=== PATIENT | male | born 1965 | race Caucasian/White ===

== ENCOUNTER 2016-10-16 23:41 | Emergency (ER) | payer BC ==
--- NOTE | 2016-10-17 23:16 | ER ---
ADMIT: 10/16/2016 RM/LOC: ER [facility] MR#: [id number] [address] [id number] [facility] [address] Emergency Room Report SEX: M AGE: 51 : 1965 DATE: 10/16/2016 ADDENDUM: See T-sheet for complete H and P. The patient is a 51-year-old male with no history of migraines, who comes in with a headache. The headache has been there for about 7-8 days, but has been worse in the past 12-18 hours. States the headache all over his head, is not really made worse by anything he has tried. He denies any fevers, chills, nausea, vomiting, or photophobia. He denies any neurologic symptoms. He states he had some increased tenderness in his bilateral temples earlier, but he states it is not really there now. Physical exam on the patient was completely unremarkable. He had no tenderness over his temporal arteries. Neurologic exam was unremarkable. I did get a CBC and chemistries, which were normal and a CRP, which was 0.29 and normal. I got a head CT of the patient, which also was normal. While in the ER, he has 1 [place] tablet, 5 of Valium p.o. and Toradol 30 mg IM. The patient was feeling significantly better and he is discharged to home to return back to the ER with any concerning symptoms. Otherwise, follow up with Dr. Gallagher if his headaches are not improving. DIAGNOSIS: Headache. Jarocho Salvador MD/ oli JOB #: [id number] CC: Leeroy Vora MD, Attending Physician Jan Gallagher MD, Family Physician
== END 2016-10-17 01:40 | disposition home or self-care (01) ==
LOC: ER 23:41
DX: R51 Headache (principal)